=== PATIENT | female | born 2000 | race Caucasian/White ===

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

== ENCOUNTER 2021-05-17 14:23 | Emergency (ER) | payer OTHER ==
[~2021-05-17 14:23] MED LIST changes: +DIFLUCAN150 MG PO; +DOXYCYCLINE HY100 MG PO; +FISH OIL 1000MG1 CAP PO; +FLORAJEN A20 Billion; +MACROBID 1100 MG/CAP PO; +MOTRIN 800800 MG/TAB PO; +ZOFRAN 4MG T4 MG/TAB PO
== END 2021-05-17 15:33 | disposition left against medical advice (07) ==
LOC: COL.ER 14:23
DX: R69 Illness, unspecified (principal)